=== PATIENT | male | born 1980 | race Caucasian/White ===

== ENCOUNTER 2017-10-19 20:43 | Emergency (ER) | payer OTHER, SELFPAY ==
[2017-10-19 20:44] VITALS: BP 149/87; PULSE 54; RESP 17; TEMP 36.4; O2SAT 100; BMI 32.9
--- NOTE | 2017-10-19 21:38 | CT_ITS ---
STUDY: CT ABDOMEN AND PELVIS WITHOUT CONTRAST REASON FOR EXAM: Male, 37 years old. Back pain. RADIATION DOSAGE (If Supplied By Facility): CTDIvol = ( 16.90 ) mGy, DLP = ( 945.85 ) mGycm TECHNIQUE: Transaxial images were obtained from the dome of the diaphragm to the symphysis pubis without oral contrast, and without intravenous contrast. Sagittal and coronal images were reconstructed. Individualized dose optimization techniques were used for this CT. COMPARISON: None. FINDINGS: The visualized lung bases are unremarkable. The visualized portions of the heart are within normal limits. Normal liver. Normal gallbladder and extrahepatic biliary system. Normal spleen. Normal pancreas. Normal bilateral adrenal glands. Normal right kidney. Normal left kidney. No stones or hydronephrosis. Normal visualized stomach. Normal small intestine. Normal colon. The appendix is visualized and appears normal. Normal abdominal aorta. Normal inferior vena cava. Normal retroperitoneum. Normal urinary bladder. There is no free fluid in the abdomen or pelvis. Normal abdominal wall. There are diffuse degenerative changes of the visualized lumbar spine. CT/Abdomen/Pelvis without Cont IMPRESSION: Normal unenhanced CT of the abdomen and pelvis. No stones or hydronephrosis Lumbar spondylosis. Electronically Signed: Erasmo Sandhu MD at 22:44 EDT , Service support ,
[2017-10-19] MEDS: Ondansetron 4 MG/2 ML Vial IV (21:51)
[2017-10-19] MEDS: Morphine 4 MG/ML Syringe IV (21:51)
[2017-10-19] MEDS: 0.9% Normal Saline 1,000 ML 250 ML IV (21:51)
[2017-10-19] MEDS: Ketorolac 30 MG/ML Syringe IV (21:51)
[2017-10-19 22:09] LABS: Bacteria 0 SEEN /hpf (None Seen); Mucous, Urine 0 SEEN /hpf (<or=2+); Red Blood Cells-Urine 0 SEEN /hpf (0-5); Squamous Epithelial Cells - UA 0 SEEN /hpf (0-5); White Blood Cells 0 SEEN /hpf (0-5)
[2017-10-19 22:12] LABS: Color, Urine Yellow (Yellow); Glucose, Dipstick Normal (Normal); Ketone-Dipstick 5 mg/dl (Negative); Leukocyte Esterase-Dipstick Negative /ul (Negative); Nitrite-Dipstick Negative (Negative); Occult Blood-Urine Negative /ul (Negative); Protein-Dipstick 15 mg/dl (Negative); Specific Gravity, Urine 1.025 (1.002-1.030); Urine Bilirubin Dipstick Negative (Negative); Urine Clarity Clear (Clear); Urine Urobilinogen Normal (Normal)
--- NOTE | 2017-10-19 23:06 | ED.VISSUMM ---
- ER Visit Summary Date of Service: 10/19/17 Chief Complaint: Right Sided back pain History of Present Illness: The patient is a 37 M with right-sided back pain. The patient denies any trauma. He states over the weekend, they were having a garage sale. He helped someone move a chair in the chair slipped. He felt a twinge in his neck but not in his back. Over the past 24 hours, has had increasing pain in his right thoracic area. It is worse when he twists or moves. He denies any chest pain. He denies any shortness of breath. He said no urinary symptoms. He states the pain comes in waves but never fully goes away. It does not radiate into his abdomen or to his testicles. Physical Examination: Afebrile, vitals unremarkable. Well-appearing female no acute distress. Head is normocephalic, atraumatic. Pupil's equal round reactive, extraocular muscles intact. Neck supple. Heart regular rate and rhythm. Lungs clear, chest nontender. Abdomen soft, nontender, nondistended. No pulsatile mass. Patient has paraspinal tenderness in the thoracic area, but no bony tenderness. Straight leg raise is negative bilaterally. 2+ symmetric lower extremity pulses. 2+ reflexes. No clonus. No weakness of dorsiflexion, plantar flexion, or extensor hallucis longus bilaterally. Test Results: [] Emergency Department Course and Treatment: The patient has paraspinal tenderness in the right thoracic area. He is not hypoxic. He is not tachypneic. I do not feel this represents pulmonary embolus. He also has some mild CVA tenderness. He does have some colicky symptoms to his pain. I did want to rule out kidney stone. Patient was given IV fluids, Toradol, and morphine. He did a marked improvement of his symptoms. CT shows no acute pathology. I do for the patient is here for outpatient therapy. He will be treated with antispasmodics, short course of analgesics, and anti-inflammatories. He will return with any worsening symptoms. Treatment Plan: [] Disposition: Discharge Impression: Acute thoracic strain This note was generated with [employer] dictation software. It may contain incorrect words, spelling, and punctuation that were not noted in review of the chart prior to signing ED Disposition - Plan for ED Patient: Chief Complaint: Back Instructions: ED Sprain Strain Lumbar Prescriptions: Hydrocodone Bitart/Apap 5-325 [[place] 5MG-325MG] 1 tab PO Q4H PRN PRN 2 Days #8 tab PRN Reason: Pain Naproxen [Naprosyn] 500 mg PO BID PRN #20 tab Cyclobenzaprine [Flexeril] 10 mg PO TID PRN #20 tab PRN Reason: Muscle Spasm Referrals: Jono Lyons MD [Primary Care Provider] -
[2017-10-19] MEDS: HYDROcodone Bitartrate/Apap 5/325 Tablet PO (23:14)
[2017-10-19 23:17] VITALS: BP 135/88; PULSE 51; O2SAT 97
== END 2017-10-19 23:21 | disposition home or self-care (01) ==
LOC: ED 21:57
PROVIDERS: Emergency Provider Emergency Medicine; PCP Family Medicine
DX: M54.9 Dorsalgia, unspecified (principal); S29.012A Strain of muscle and tendon of back wall of thorax, initial encounter; X50.0XXA Overexertion from strenuous movement or load, initial encounter; Y93.89 Activity, other specified; Y92.89 Other specified places as the place of occurrence of the external cause
CPT/HCPCS: 74176; 81001; 96361; 96374; 96375; 99282; J7030; A4216; J2405

== ENCOUNTER → 2018-07-29 15:31 | Outpatient (CLI) | payer OTHER, SELFPAY ==
[2018-07-29 08:33] VITALS: BMI 33.9
== END ==
PROVIDERS: Family Provider Family Medicine; PCP Family Medicine; Referring Provider Physician Assistant; Visit Provider Physician Assistant
DX: J02.9 Acute pharyngitis, unspecified (principal)
CPT/HCPCS: 87081

== ENCOUNTER 2018-12-18 17:02 | Emergency (ER) | payer OTHER, SELFPAY ==
[2018-08-08 11:48] VITALS: BMI 33.9
[2018-12-18 17:02] VITALS: BP 119/86; PULSE 76; RESP 16; TEMP 36.9; O2SAT 98; BMI 35.5
--- NOTE | 2018-12-18 17:09 | RAD_ITS ---
STUDY: X-RAY - LEFT HAND REASON FOR EXAM: Male, 38 years old. HAND GOT CAUGHT IN A LOG SPLITTER, ATTN 4TH AND 5TH DIGITS TECHNIQUE: 3 view(s) of the hand. COMPARISON: None. FINDINGS: Normal radiocarpal articulation. Normal distal radioulnar joint. Normal visualized carpal bones. Normal carpal articulations Normal carpometacarpal articulation of the thumb. Normal second through fifth carpometacarpal joints. Normal metacarpi. Normal metacarpophalangeal joint of the thumb. Normal interphalangeal joint of the thumb. Normal proximal and distal phalanges of the thumb. Normal metacarpophalangeal joints of the second through fifth fingers. Obliquely oriented fracture of the fifth distal phalanx with approximately one shaft width displacement. There is significant soft tissue swelling and defect suggesting partial amputation. There is also a transverse nondisplaced fracture of the fourth middle phalanx with associated soft tissue swelling. Normal phalanges of the second through fifth fingers. RAD/Hand Min 3 Views IMPRESSION: 1. Partial amputation of the fifth distal phalanx with displaced distal phalanx fracture. 2. Nondisplaced fourth middle phalanx fracture. Electronically Signed: Keven Meléndez MD at 17:29 EDT , Service support ,
[2018-12-18] MEDS: Bupivacaine Mpf 0.5% 30 ML VIAL INFILT (17:25)
[2018-12-18] MEDS: Diphth,Pertuss(Acell),Tet Vac 0.5 ML Vial IM (17:26)
[2018-12-18] MEDS: Morphine 4 MG/ML Syringe IV (18:00)
[2018-12-18 18:05] VITALS: BP 125/73; PULSE 73; RESP 15; O2SAT 96
[2018-12-18 18:55] VITALS: BP 119/78; PULSE 69; RESP 16; O2SAT 100
--- NOTE | 2018-12-18 19:46 | ED.DCSUM_ITS ---
- ER Visit Summary Date of Service: 12/18/18 Chief Complaint: Laceration History of Present Illness: The patient is a [address] Hutson. He is right-hand dominant. He reports that just prior to coming emergency department he got his left ring and small fingers caught in a wood splitter. He reports that he has a dull pain that is 2 out of 10 at rest and 10 out of 10 with movement. He is unsure when his last tetanus shot was. Physical Examination: Vitals: Stable. Afebrile. General: Well-nourished and well-developed. Head: Normocephalic atraumatic. Neck: Supple, no lymphadenopathy. No JVD. Nontender. Cardiovascular: Regular rate and rhythm. No murmurs. Respiratory: No respiratory distress. Clear to auscultation bilaterally. Abdominal: Soft, nontender, nondistended, normal bowel sounds. No guarding, rebound, or peritoneal signs. Back: Nontender. Extremities: Left small finger has a circumferential laceration with an obvious deformity to the distal phalanx. There is approximately 5 mm of spared skin that is not cut. This is not dusky. There is less than 2-second capillary refill. Left ring finger shows soft tissue swelling and severe tenderness palpation from the middle phalanx distally. He is neurovascular intact. Skin: Normal color, no rash. Neurologic: Alert and oriented ?3. Cranial nerves II through XII are intact. Normal strength and sensation. Psych: Normal affect. Test Results: Clinical Impression(s) from Imaging Studies Hand X-Ray 12/18/18 17:09 IMPRESSION: 1. Partial amputation of the fifth distal phalanx with displaced distal phalanx fracture. 2. Nondisplaced fourth middle phalanx fracture. Electronically Signed: Keven Meléndez MD at 17:29 EDT , Service support , Emergency Department Course and Treatment: Patient had his tetanus updated. He was given morphine IV and Keflex p.o. He had his wound anesthetized and repaired. He tolerated this well. Treatment Plan: Patient was discussed with Dr. Macias. He is instructed to follow-up with her in 2 days for a wound check. He does understand that these fractures may ultimately need surgery. He will be placed on Keflex and Percocet at home. Return to the emergency department for any worsening symptoms. Disposition: To home in improved and stable condition. Impression: 1. Open fracture left fifth distal phalanx. 2. Laceration left small finger, 3 cm, repaired. 3. Fracture left fourth finger middle phalanx. 4. Ulnar gutter splint, fabricated. Procedure note: Wound was cleansed with chlorhexidine soap. Anesthetized with 5 cc of bupivacaine as a digital block. Copiously irrigated with normal saline. Wound was explored there is no foreign material present. It was closed with 7 simple interrupted 4-0 ethilon sutures. The patient tolerated it well. This note was generated with [employer] dictation software. It may contain incorrect words, spelling, and punctuation that were not noted in review of the chart prior to signing ED Disposition - Plan for ED Patient: Disposition: Home or Assisted Living Instructions: FRACTURE, Finger (Open) Prescriptions: Cephalexin [Keflex] 500 mg PO Q6 #40 cap Prescription Printed Oxycodone HCl/Acetaminophen [Percocet 5/325] 1 tab PO Q6H PRN PRN 5 Days #20 tab PRN Reason: Pain Prescription Printed Referrals: Clementina Macias DO [STAFF PHYSICIAN] - 12/21/18
[2018-12-18] MEDS: Cephalexin 500 MG Capsule PO (19:58)
[2018-12-18 20:02] VITALS: BP 127/86; PULSE 71; RESP 16; O2SAT 97
== END 2018-12-18 20:02 | disposition home or self-care (01) ==
PROVIDERS: Emergency Provider Emergency Medicine; Family Provider Family Medicine; PCP Family Medicine
DX: S62.637B Displaced fracture of distal phalanx of left little finger, initial encounter for open fracture (principal); S61.217A Laceration without foreign body of left little finger without damage to nail, initial encounter; S62.655A Nondisplaced fracture of middle phalanx of left ring finger, initial encounter for closed fracture; W23.0XXA Caught, crushed, jammed, or pinched between moving objects, initial encounter; Y93.9 Activity, unspecified; Y92.9 Unspecified place or not applicable
CPT/HCPCS: 12002; 29125; 73130; 90715; 96374; 99285

== ENCOUNTER 2018-12-23 08:48 | Outpatient (RCR) | payer OTHER, SELFPAY ==
[2018-12-21 13:05] VITALS: BMI 35.5
--- NOTE | 2018-12-23 12:29 | HP.OTEVAL_ITS ---
Patient's Visit Information VIKI RAYO is a 38 year old M, referred to Occupational Therapy by Clementina Macias DO, with a diagnosis of L 5th digit/splint. Date of Evaluation: 12/23/18 Occupational Therapist: Mala Guillen - Subjective Subjective: Pt seen for initial occupational therapy evaluation after suffering injury to L 4th and 5th digit when splitting logs 12/18/18. Pt was using log splitter and got L hand stuck between log and side of machine. Pt lives w/ spouse and children. 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. Pt is R hand dominent. At this time, pt has not decided between pinning of L 4th digit or just splinting and letting it heal on its own. - Pain L hand Pain Intensity Range: 1 - Objective Objective/Observation: limited funcitonal use of L hand, increased edema and wound L 5th digit - ROM DIP: R hand flexion 4th 63', 5th 45', L DNT - Strength Diesel Powerplant Supervisor: R 130#, L DNT Lateral Pinch: R 13#, L DNT Tripod Pinch: R 14#, L DNT - Quick DASH-Disab of Arm,Shoulder& Hand Quick DASH Score: 45.4525 - Goals Goal:100% adherence to protocol: Yes Goal:Daily scar massage when approriate: Yes Goal:ROM equal to unaffected hand: Yes Goal:No pain with affected hand use: Yes Goal:PIP Circumferences equal to unaffected hand: Yes Goal:Full use of affected hand in daily activities including: Yes Goal:Decrease scar hypersensitivity: Yes Other Goal: Pt will be educated on proper way to erica/doff splints and check for good skin integrity as well as demo good understanding of wound care mngmt with good understanding and demo 100%x - Rehabilitation General Assessment: Pt demo decreased functional use of L UE digits 4th and 5th from traumatic injury. Pt would benefit from direct occupational therapy services to fabricate appropriate splints as needed for digits 4 and 5 of L hand, educated on proper way to erica/doff splints, check for good skin integrity, educate on wound care mngmt and increase ROM and strength when appropriate 1-2x/wk x 4-6wks. Rehabilitation Potential: Excellent - Anticipated Interventions Anticipated Interventions: A/AAROM/PROM, Strengthening, Scar Care, Massage, Jose ensitization, Wound Care, Modalities, Orthoses, Joint Protection/Energy Conservation, Fine Motor Coord/[place], ADL Training, Education re Diagnosis, Education re Self-Bandaging Techniques, Education re Skin Care and Precautions, Education re Self Massage Techniques, Education re Correct Donning Tech,Care&Wearing Sched Comp Garments, Caregiver Training, Home Program - Visit Plan Frequency: 1-2x /Week Duration: 4-6 Weeks General Plan: Pt would benefit from direct occupational therapy services to fabricate appropriate splints as needed for digits 4 and 5 of L hand, follow protocol for L hand, educated on proper way to erica/doff splints, check for good skin integrity, educate on wound care mngmt and increase ROM and strength when appropriate 1-2x/wk x 4-6wks. TEXT: Thank you for the opportunity to evaluate your patient. For Medicare and Medicare HMO plans, please review the plan of care and approve it. It will need to be FAXED BACK to us at [phone] for Medicare purposes. Please let me know if there are questions or concerns regarding this plan of care. Physician Signature: Date:
== END 2018-12-23 19:00 | disposition home or self-care (01) ==
LOC: OT 08:48
PROVIDERS: Family Provider Family Medicine; PCP Family Medicine; Referring Provider Orthopaedic Surgery; Visit Provider Orthopaedic Surgery
DX: S62.637D Displaced fracture of distal phalanx of left little finger, subsequent encounter for fracture with routine healing (principal); S62.625D Displaced fracture of middle phalanx of left ring finger, subsequent encounter for fracture with routine healing
CPT/HCPCS: 97165; 97166; 97760

== ENCOUNTER → 2018-12-23 | Outpatient (CLI) | payer OTHER, SELFPAY ==
[2018-12-21 13:05] VITALS: BMI 35.5
--- NOTE | 2018-12-23 10:10 | RAD_ITS ---
STUDY: X-RAY - LEFT HAND REASON FOR EXAM: Injury of fourth and fifth distal fingers. TECHNIQUE: 3 view(s) of the hand. COMPARISON: Radiographs 12/18/2018. FINDINGS: Normal radiocarpal articulation. Normal distal radioulnar joint. Normal visualized carpal bones. Normal carpal articulations Normal carpometacarpal articulation of the thumb. Normal second through fifth carpometacarpal joints. Normal metacarpi. Normal metacarpophalangeal joint of the thumb. Normal interphalangeal joint of the thumb. Normal proximal and distal phalanges of the thumb. Normal metacarpophalangeal joints of the second through fifth fingers. Normal proximal and distal interphalangeal joints of the second through fifth fingers. There are nondisplaced fractures of the fourth middle phalanx and fifth distal phalanx. There are overlying splints of the fourth and fifth digits. RAD/Hand Min 3 Views IMPRESSION: Nondisplaced fractures of the fourth middle phalanx and fourth distal phalanx. Electronically Signed: Dave Yarbrough MD at 10:36 EDT Tel , Service support ,
== END | disposition home or self-care (01) ==
LOC: HPRAD 10:09
PROVIDERS: Family Provider Family Medicine; PCP Family Medicine; Referring Provider Orthopaedic Surgery; Visit Provider Orthopaedic Surgery
DX: S62.625A Displaced fracture of middle phalanx of left ring finger, initial encounter for closed fracture (principal); S62.637B Displaced fracture of distal phalanx of left little finger, initial encounter for open fracture
CPT/HCPCS: 73130

== ENCOUNTER → 2018-12-31 | Outpatient (CLI) | payer OTHER, SELFPAY ==
[2018-12-31 12:28] VITALS: BMI 35.5
--- NOTE | 2018-12-31 12:34 | RAD_ITS ---
STUDY: X-RAY - LEFT HAND REASON FOR EXAM: Male, 38 years old. Fracture TECHNIQUE: 3 view(s) of the hand. COMPARISON: 12/23/2018 FINDINGS: Stable spiral fractures in the distal phalanx of the fifth digit and the middle phalanx of the fourth digit. Normal radiocarpal articulation. Normal distal radioulnar joint. Normal visualized carpal bones. Normal carpal articulations Normal carpometacarpal articulation of the thumb. Normal second through fifth carpometacarpal joints. Normal metacarpi. Normal metacarpophalangeal joint of the thumb. Normal interphalangeal joint of the thumb. Normal proximal and distal phalanges of the thumb. Normal metacarpophalangeal joints of the second through fifth fingers. Normal proximal and distal interphalangeal joints of the second through fifth fingers. The soft tissue structures are unremarkable. RAD/Hand Min 3 Views IMPRESSION: Healing fractures in the fourth and fifth digits, no significant interval change since the previous study Electronically Signed: Tong David MD at 13:26 EDT , Service support ,
== END | disposition home or self-care (01) ==
LOC: HPRAD 12:33
PROVIDERS: Family Provider Family Medicine; PCP Family Medicine; Referring Provider Physician Assistant; Visit Provider Physician Assistant
DX: S62.625A Displaced fracture of middle phalanx of left ring finger, initial encounter for closed fracture (principal); S62.637A Displaced fracture of distal phalanx of left little finger, initial encounter for closed fracture
CPT/HCPCS: 73130

== ENCOUNTER → 2019-01-28 13:39 | Outpatient (CLI) | payer OTHER, SELFPAY ==
[2019-01-28 13:27] VITALS: BMI 35.5
--- NOTE | 2019-01-28 13:40 | RAD_ITS ---
STUDY: X-RAY - LEFT HAND REASON FOR EXAM: Male, 39 years old. Follow-up examination. TECHNIQUE: 3 view(s) of the hand. COMPARISON: Comparison is made with prior study dated December 31, 2018. FINDINGS: Normal radiocarpal articulation. Normal distal radioulnar joint. Normal visualized carpal bones. Normal carpal articulations Normal carpometacarpal articulation of the thumb. Normal second through fifth carpometacarpal joints. Normal metacarpi. Normal metacarpophalangeal joint of the thumb. Normal interphalangeal joint of the thumb. Normal proximal and distal phalanges of the thumb. Normal metacarpophalangeal joints of the second through fifth fingers. Normal proximal and distal interphalangeal joints of the second through fifth fingers. Healing fracture through the distal portion of the middle phalanx of the fourth digit as well as the base of the distal phalanx of the fifth digit. Alignment is maintained. Soft tissue swelling. RAD/Hand Min 3 Views IMPRESSION: Healing fractures as described. The alignment is well maintained. Soft tissue swelling. Electronically Signed: Isael Boucher, at 15:09 EDT , Service support ,
== END ==
PROVIDERS: Family Provider Family Medicine; PCP Family Medicine; Referring Provider Physician Assistant; Visit Provider Physician Assistant
DX: S62.625A Displaced fracture of middle phalanx of left ring finger, initial encounter for closed fracture (principal); S62.637B Displaced fracture of distal phalanx of left little finger, initial encounter for open fracture
CPT/HCPCS: 73130

== ENCOUNTER → 2019-02-01 12:22 | Outpatient (CLI) | payer OTHER, SELFPAY ==
[2019-01-28 13:27] VITALS: BMI 35.5
--- NOTE | 2019-02-01 12:24 | MRI_ITS ---
STUDY: MRI LEFT HAND (ATTENTION FOURTH AND FIFTH DIGITS) REASON FOR EXAM: Crush injury of the fourth and fifth digits 6 weeks ago, unable to bend fourth digit. TECHNIQUE: Standardized fat and water weighted pulse sequences were obtained in all 3 orthogonal planes. COMPARISON: Radiographs 01/28/2019. FINDINGS: There is a nondisplaced fracture of the neck of the fourth middle phalanx (T2 sagittal images 22, 23) with associated bone edema (inversion recovery coronal images 9-12). Normal proximal and distal phalanges of the fourth digit. Normal visualized fourth metacarpal. There is a fracture of the proximal metaphysis of the fifth distal phalanx with mild palmar displacement of the distal fragment (T2 sagittal image 30) with associated bone edema (inversion recovery coronal images 5, 6). Normal middle and proximal phalanges of the fifth digit. Normal visualized fifth metacarpal. There is a tear of the conjoint extensor tendon of the fourth digit proximal to the distal phalangeal insertion (T2 sagittal images 22, 23). Normal flexor tendons of the fourth digit. There is mild flexor tenosynovitis of the fifth digit at the level of the proximal phalanx (inversion recovery axial images 9-11). The flexor and extensor tendons of the fifth digit appear intact. There is mild edema in the subcutis adipose space of the distal fourth and fifth digits without fluid collection to indicate soft tissue abscess. MRI/Upper Ext/No Jt/ wo IMPRESSION: Tear of the conjoint extensor tendon of the fourth digit. Fractures of the fourth middle phalanx and fifth distal phalanx. Mild flexor tenosynovitis of the fifth digit. Electronically Signed: Dave Yarbrough MD at 10:07 EDT Tel , Service support ,
== END ==
PROVIDERS: Family Provider Family Medicine; PCP Family Medicine; Referring Provider Physician Assistant; Visit Provider Physician Assistant
DX: S62.625A Displaced fracture of middle phalanx of left ring finger, initial encounter for closed fracture (principal); S62.637B Displaced fracture of distal phalanx of left little finger, initial encounter for open fracture
CPT/HCPCS: 73218